=== PATIENT | male | born 1995 | race American Indian/Alaskan Native ===

== ENCOUNTER 2018-08-28 11:15 | Emergency (ER) | payer OTHER ==
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
[2018-08-28] MEDS ORDERED: MOTRIN PO ONE (13:25)
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
[2018-08-28 15:10] VITALS: BP 117/73
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
== END 2018-08-28 15:10 | disposition home or self-care (01) ==
LOC: ED 11:15
DX: M79.18 Myalgia, other site (principal); R07.81 Pleurodynia; F17.200 Nicotine dependence, unspecified, uncomplicated; V49.49XA Driver injured in collision with other motor vehicles in traffic accident, initial encounter; Y93.89 Activity, other specified; Y92.488 Other paved roadways as the place of occurrence of the external cause; Y99.8 Other external cause status
CPT/HCPCS: 72040